=== PATIENT | female | born 1990 | race Caucasian/White ===

== ENCOUNTER 2017-07-20 21:07 | Emergency (ER) | payer MEDICAID, OTHER ==
--- NOTE | 2017-07-20 22:04 | C.PDOC ---
History Of Present Illness 26 yo female come in for evaluation of painful mass over pubic area developed for past few weeks. Patient reports, yesterday noted some discharges from wound now. Otherwise, pt denies fever, chills, abd. pain, UTI sx. Ambulate to Ed for evaluation, not in any apparent distress. Time Seen by Provider: 07/20/17 21:40 Chief Complaint (Nursing): Female Genitourinary History Per: Patient Past Medical History Reviewed: Historical Data, Nursing Documentation, Vital Signs Vital Signs: Last Vital Signs Temp 98.1 F 07/20/17 21:31 Pulse 54 L 07/20/17 21:31 Resp 14 07/20/17 21:31 BP 104/68 07/20/17 21:31 Pulse Ox 98 07/20/17 22:16 - Medical History PMH: Asthma Family History: States: No Known Family Hx - Social History Hx Alcohol Use: Yes Hx Substance Use: No - Immunization History Hx Tetanus Toxoid Vaccination: No Hx Influenza Vaccination: No Hx Pneumococcal Vaccination: No Review Of Systems Except As Marked, All Systems Reviewed And Found Negative. Constitutional: Negative for: Fever, Chills ENT: Negative for: Throat Pain, Throat Swelling Gastrointestinal: Negative for: Nausea, Vomiting, Abdominal Pain Genitourinary: Negative for: Dysuria, Incontinence Skin: Positive for: Lesions Physical Exam - Physical Exam Appears: Well, Non-toxic, No Acute Distress Skin: Normal Color, Warm, Other (small tender mass suprapubic area 2cm diameter with center opening, (+) scant yellow discharges. No flactulance, no proximal streaking.) Gastrointestinal/Abdominal: Soft, No Tenderness, No Distention, No Guarding Extremity: Normal ROM, No Deformity, No Swelling Neurological/Psych: Oriented x3, Normal Speech ED Course And Treatment O2 Sat by Pulse Oximetry: 98 Progress Note: On re-evaluation, pt is afebrile, hemodynamicaly stable. Non- toxic. Abd: benign, (-) guarding, (-) rebound. Skin: self-draining abscess suprapubic area, no flactulance, no proximal streaking. Pt advised. ref. to f/ u with PMD, Surgery in 2-3 days for re-eval. return to ED if any worsening or new changes. Disposition Counseled Patient/Family Regarding: Diagnosis, Need For Followup, Rx Given - Disposition Referrals: [facility] [Outside] Shay Hall MD [Staff Provider] - Disposition: HOME/ ROUTINE Disposition Time: 22:13 Condition: STABLE Additional Instructions: WARM SALTY WATER COMPRESSES TO AREA TWICE DAILY FOR 5 MINUTES TAKE MEDICATION PRESCRIBED FOLLOW UP WITH PMD, SURGERY IN 2 DAYS FOR RE-EVALUATION. RETURN TO ED IF ANY WORSENING OR NEW CHANGES. Prescriptions: Doxycycline Hyclate [Doryx] 100 mg PO BID #14 cap Instructions: Skin Abscess Forms: [facility] (Kyrgyz) - Clinical Impression Clinical Impression: Abscess
[2017-07-20 22:54] VITALS: BP 104/70; PULSE 63; RESP 16; TEMP 98; O2SAT 99
== END 2017-07-20 22:59 | disposition home or self-care (01) ==
LOC: C.ER 21:07
DX: L02.219 Cutaneous abscess of trunk, unspecified (principal)